=== PATIENT | male | born 1970 | race Two or more races ===

== ENCOUNTER 2019-09-05 14:28 | Emergency (ER) | payer BC, OTHER ==
[~2019-09-05] VITALS: Ht 182.9 cm; Wt 91.0 kg
--- NOTE | 2019-09-05 15:13 | NUR ---
PT HAS CO PAIN IN LUMBAR AND LEFT UPPER HIP FROM FALL YESTERDAY. PT TRIPPED BACKWARDS OVER [facility]. HIP IS BRUISED. PT WAS SEEN AT [facility], BUT PAIN IS WORSE TODAY. PT NOT IN DISTRESS. NO LOC, ALL SENSATION PRESENT IN EXTREMITIES. NO N/T
[2019-09-05] MEDS ORDERED: MORPHINE SULFATE 4 MG/ML, 1ML IVPush PRN (15:30)
[2019-09-05] MEDS ORDERED: ONDANSETRON 2MG/ML, 2ML IVPush ONE (15:30)
[2019-09-05] MEDS ORDERED: MORPHINE SULFATE 4 MG/ML, 1ML ONE (15:40)
[2019-09-05] MEDS ORDERED: ONDANSETRON 2MG/ML, 2ML ONE (15:40)
[2019-09-05 15:48] LABS: BASOPHILS # (AUTO) 0.03 x10^3/uL (0-0.1); BASOPHILS % (AUTO) 0 % (0-1); EOSINOPHILS # (AUTO) 0.25 x10^3/uL (0-0.4); EOSINOPHILS % (AUTO) 3 % (1-7); LYMPHOCYTES # (AUTO) 1.77 x10^3/uL (1-3.4); LYMPHOCYTES % (AUTO) 18 % (22-44); MD NO; MEAN CORPUSCULAR HEMOGLOBIN 35.6 pg (27.5-34.5); MEAN CORPUSCULAR HGB CONC 34.3 g/dL (33.2-36.2); MEAN CORPUSCULAR VOLUME 103.7 fL (81-97); MEAN PLATELET VOLUME 7.6 fL (7.4-10.4); MONOCYTES % (AUTO) 8 % (2-9); NEUTROPHILS # (AUTO) 6.96 x10^3/uL (1.8-6.8); NEUTROPHILS % (AUTO) 71 % (42-75); PLATELET COUNT 235 x10^3/uL (130-400); RED BLOOD COUNT 5.02 x10^6/uL (4.38-5.82); RED CELL DISTRIBUTION WIDTH 12.8 % (9.4-14.8)
--- NOTE | 2019-09-05 15:53 | NUR ---
MEDICATED PER ORDERS. VSS
[2019-09-05 15:55] LABS: ALBUMIN 3.8 g/dL (3.4-5.0); ANION GAP 7 mmol/L (5-15); CALCIUM 8.6 mg/dL (8.5-10.1); CHLORIDE 111 mmol/L (98-107)
[2019-09-05 15:58] LABS: ALANINE AMINOTRANSFERASE 31 U/L (12-78); ALKALINE PHOSPHATASE 80 U/L (45-117); BILIRUBIN,TOTAL 0.9 mg/dL (0.2-1.0); CREATININE 0.98 mg/dL (0.7-1.3); TOTAL PROTEIN 7.2 g/dL (6.4-8.2)
[2019-09-05] MEDS ORDERED: OMNIPAQUE 350 MG/ML, 100ML BOTTLE ONE (16:55)
--- NOTE | 2019-09-05 16:56 | NUR ---
PT BACK FROM CT
--- NOTE | 2019-09-05 17:29 | NUR ---
PROVIDED EDUCATION ABOUT INCENTIVE SPIROMETER. PT DEMONSTRATED PROPER USE. NO FURTHER QUESTIONS. WAITING FOR IMAGE RESULTS.
[2019-09-05 17:32] VITALS: BP 124/227
--- NOTE | 2019-09-05 18:11 | NUR ---
Patient/Caregiver given discharge instructions and they have confirmed that they understand the instructions. Patient ambulatory with steady gait.
== END 2019-09-05 18:58 | disposition home or self-care (01) ==
LOC: ED 18:00
DX: S22.42XA Multiple fractures of ribs, left side, initial encounter for closed fracture (principal); W18.30XA Fall on same level, unspecified, initial encounter; Y93.89 Activity, other specified; Y92.89 Other specified places as the place of occurrence of the external cause; Y99.8 Other external cause status
CPT/HCPCS: 36415; 71260; 74177; 80053; 85025; 96374; 96375; 99285; J2270; J2405; Q9967